=== PATIENT | male | born 2000 | race Caucasian/White ===

== ENCOUNTER 2024-01-27 19:45 | Emergency (ER) | payer OTHER ==
[~2024-01-27] VITALS: Ht 172.7 cm; Wt 80.1 kg
[2024-01-27 23:02] LABS: Urine Bacteria None Seen /hpf (None Seen)
[2024-01-27 23:08] LABS: Urine Blood Negative /uL (Negative); Urine Clarity Clear (Clear); Urine Color Light-Yellow (Yellow); Urine Protein, UAD Negative (Negative); Urine Specific Gravity 1.028 (1.001-1.035); Urine Urobilinogen Normal (Negative); Urine WBC <1 /hpf (0 - 3)
[2024-01-27 23:41] VITALS: BP 146/84; PULSE 57; RESP 20; TEMP 97.8; O2SAT 99
== END 2024-01-27 23:47 | disposition home or self-care (01) ==
LOC: ER 19:45
DX: S06.0X0A Concussion without loss of consciousness, initial encounter (principal); S93.401A Sprain of unspecified ligament of right ankle, initial encounter; W22.8XXA Striking against or struck by other objects, initial encounter; Y93.89 Activity, other specified; Y92.89 Other specified places as the place of occurrence of the external cause; Y99.8 Other external cause status
CPT/HCPCS: 70450; 72040; 73610; 81001; 82962

== ENCOUNTER 2024-01-30 09:50 | Emergency (ER) | payer OTHER ==
[~2024-01-30] VITALS: Ht 172.7 cm; Wt 79.7 kg
[2024-01-30 09:50] VITALS: BP 157/97; PULSE 90; RESP 16; O2SAT 99
== END 2024-01-30 10:58 | disposition home or self-care (01) ==
LOC: ER 09:50
DX: S00.81XD Abrasion of other part of head, subsequent encounter (principal); R42 Dizziness and giddiness; X58.XXXD Exposure to other specified factors, subsequent encounter